=== PATIENT | female | born 1970 | race Caucasian/White ===

== ENCOUNTER 2021-04-28 06:00 | Outpatient (RCR) | payer OTHER, SELFPAY | END 2021-05-24 23:59 | disposition home or self-care (01) | LOC: SPT 06:00 | PROVIDERS: Visit Provider Nurse Practitioner Gerontology | DX: C50.919 Malignant neoplasm of unspecified site of unspecified female breast (principal) | CPT/HCPCS: 97140; 97161 ==

== ENCOUNTER 2021-05-25 06:00 | Outpatient (RCR) | payer OTHER, SELFPAY | END 2021-06-23 23:59 | disposition home or self-care (01) | LOC: SPT 06:00 | PROVIDERS: Visit Provider Nurse Practitioner Gerontology | DX: C50.919 Malignant neoplasm of unspecified site of unspecified female breast (principal) | CPT/HCPCS: 97140 ==

== ENCOUNTER 2021-06-24 06:00 | Outpatient (RCR) | payer OTHER, SELFPAY | END 2021-07-24 23:59 | disposition home or self-care (01) | LOC: SPT 06:00 | PROVIDERS: Visit Provider Nurse Practitioner Gerontology | DX: Z90.13 Acquired absence of bilateral breasts and nipples (principal); C50.919 Malignant neoplasm of unspecified site of unspecified female breast | CPT/HCPCS: 97140 ==

== ENCOUNTER 2021-07-25 06:00 | Outpatient (RCR) | payer OTHER, SELFPAY | END 2021-08-23 23:59 | disposition home or self-care (01) | LOC: SPT 06:00 | PROVIDERS: Visit Provider Nurse Practitioner Gerontology | DX: C50.919 Malignant neoplasm of unspecified site of unspecified female breast (principal) | CPT/HCPCS: 97140 ==